=== PATIENT | male | born 1960 | race Caucasian/White ===

== ENCOUNTER 2019-07-08 05:05 | Emergency (ER) | payer BC ==
[2019-07-08] MEDS ORDERED: Lidocaine 2% with EPINEPHrine 1:200,000 20 ML SDV INJECT ONE (05:10)
--- NOTE | 2019-07-08 05:11 | EDM.PDOC ---
ED HPI GENERAL MEDICAL PROBLEM - General Chief Complaint: ENT Problem Stated Complaint: AMBULANCE Time Seen by Provider: 07/08/19 05:11 Source of Information: Reports: Patient History Limitations: Reports: No Limitations - History of Present Illness INITIAL COMMENTS - FREE TEXT/NARRATIVE: nose bleed past 3 hours. Back Pain Score (Numeric/FACES): 4 - Related Data Allergies Allergy/AdvReac Type Severity Reaction Status Date / Time duck egg Allergy Cannot Uncoded 07/08/19 05:17 Remember Home Meds: Home Meds DULoxetine HCl [Duloxetine HCl] 1 cap PO DAILY 07/08/19 [History] HYDROcodone/Ibuprofen [Hydrocodone-Ibuprofen 7.5-200] 0.5 tab PO Q8H 07/08/19 [ History] LORazepam [Lorazepam] 1 tab PO BID PRN 07/08/19 [History] Propranolol HCl [Propranolol] 10 mg PO DAILY 07/08/19 [History] ED ROS ENT - Review of Systems Review Of Systems: Comprehensive ROS is negative, except as noted in HPI. ED EXAM, ENT - Physical Exam Exam: See Below Exam Limited By: No Limitations General Appearance: Alert, WD/WN, Mild Distress, Other (discomfort) Ears: Hearing Grossly Normal Nose: Active Bleeding, Other (right hasslebach) Mouth/Throat: Normal Inspection Head: Atraumatic Neck: Non-Tender, Full Range of Motion Respiratory/Chest: No Respiratory Distress Cardiovascular: Regular Rate, Rhythm GI/Abdominal: Soft, Non-Tender Neurological: Alert, Oriented, Normal Cognition, Normal Gait, No Motor/Sensory Deficits Psychiatric: Flat Affect Skin: Warm, Dry, Normal Color Lymphatic: No Adenopathy ED ENT PROCEDURES - Epistaxis Procedure Indication: Epistaxis Recent anticoagulants/antiplatlets: No Uncontrolled HTN: No Recent septal/nasal surgery: No Site of bleeding: Right Nare Clearing of clots: Suction Topical Meds: Other (lido w/2% epi cotton ball) Ice pack to area: No Anterior Packing: Inflatable Nasal Tampon Complications: No Course - Vital Signs Last Recorded V/S: Last Vital Signs Temp 36.3 C 07/08/19 05:06 Pulse 93 07/08/19 05:06 Resp 19 07/08/19 05:06 BP 168/95 H 07/08/19 05:06 Pulse Ox 98 07/08/19 05:06 - Orders/Labs/Meds Labs: Laboratory Tests 07/08/19 07/08/19 07/08/19 Range/Units 05:44 05:44 05:44 WBC 9.9 (5.0-10.0) 10^3/uL RBC 4.17 L (4.6-6.2) 10^6/uL Hgb 12.7 L (14.0-18.0) g/dL Hct 37.3 L (40.0-54.0) % MCV 89.4 (80-100) fL MCH 30.5 (27.0-34.0) pg MCHC 34.0 (33.0-35.0) g/dL Plt Count 214 (150-450) 10^3/uL Neut % (Auto) 66.7 (42.2-75.2) % Lymph % (Auto) 22.3 (20.5-50.1) % Gulf % (Auto) 8.1 H (2-8) % Eos % (Auto) 2.8 (1.0-3.0) % Baso % (Auto) 0.1 (0.0-1.0) % PT 9.3 (9.0-12.0) SEC INR 0.9 (0.9-1.2) APTT 24.0 (22.0-34.0) SEC Sodium 137 (135-145) mmol/L Potassium 3.9 (3.6-5.0) mmol/L Chloride 103 (101-111) mmol/L Carbon Dioxide 25.0 (21.0-31.0) mmol/L Anion Gap 12.9 BUN 22 H (7-18) mg/dL Creatinine 0.7 (0.6-1.3) mg/dL Est Cr Clr Drug Dosing 102.79 mL/min Estimated GFR (MDRD) > 60 BUN/Creatinine Ratio 31.42 Glucose 104 (74-105) mg/dL Calcium 9.4 (8.4-10.2) mg/dl Total Bilirubin 0.8 (0.2-1.0) mg/dL AST 22 (10-42) IU/L ALT 16 (10-60) IU/L Alkaline Phosphatase 42 (42-121) IU/L Total Protein 7.3 (6.7-8.2) g/dl Albumin 4.3 (3.2-5.5) g/dl Globulin 3.0 Albumin/Globulin Ratio 1.43 Meds: Medications Discontinued Medications Generic Name Dose Route Start Last Admin Trade Name Christy PRN Reason Stop Dose Admin Lidocaine/Epinephrine 20 ml 07/08/19 05:10 07/08/19 05:20 Xylocaine-Mpf 2%-Epi 1:200,000 INJECT 07/08/19 05:11 20 ml ONETIME ONE Administration Lorazepam 0.5 mg 07/08/19 05:40 07/08/19 06:10 Ativan IVPUSH 07/08/19 05:41 Not Given ONETIME ONE Lorazepam 2 mg 07/08/19 05:58 07/08/19 06:09 Ativan IVPUSH 07/08/19 05:59 1 mg ONETIME ONE Administration - Re-Assessments/Exams Free Text/Narrative Re-Assessment/Exam: 07/08/19 05:42 re-exam; no bleeding 10minutes post. 07/08/19 06:44 re-exam; no bleeding past hour. Departure - Departure Time of Disposition: 06:55 Disposition: Home, Self-Care 01 Condition: Good Clinical Impression: Epistaxis - Discharge Information Instructions: Nosebleed, [id number] Referrals: PCP,None [Ordering Only Provider] - Forms: ED Department Discharge Additional Instructions: 1) no bending lifting stooping over next 4 days 2) avoid aspirin and motrin 3) return Thursday for rhino removal Sepsis Event Note - Focused Exam Date Exam was Performed: 07/09/19 Time Exam was Performed: 06:20
[2019-07-08] MEDS ORDERED: LORazepam 2 MG/ML SDV IVPUSH ONE ×2 (05:40→05:58)
[2019-07-08 06:13] LABS: ANION GAP 12.9; CHLORIDE,CL 103 mmol/L (101-111); SODIUM,NA 137 mmol/L (135-145)
== END 2019-07-08 06:58 | disposition home or self-care (01) ==
LOC: DL.ED 05:05
DX: R04.0 Epistaxis (principal); Z91.012 Allergy to eggs
CPT/HCPCS: 30901; 36415; 80053; 85025; 85610; 85730; 96374; 99284; J2060

== ENCOUNTER 2023-02-26 07:15 | Day surgery (SDC) | payer BC ==
[~2023-02-26 07:15] MED LIST: Dextrose 5%-0.45% NaCl 1,000 ML IV SCH
[2023-02-26] MEDS ORDERED: fentaNYL 100 MCG/2 ML SDV ONE (08:13)
[2023-02-26] MEDS ORDERED: Midazolam 1 MG/ML 2 ML SDV ONE (08:13)
[2023-02-26] MEDS ORDERED: fentaNYL 100 MCG/2 ML SDV IV ONE ×7 (08:39→09:57)
[2023-02-26] MEDS ORDERED: Midazolam 1 MG/ML 2 ML SDV IV ONE ×7 (08:40→09:57)
== END 2023-02-26 10:32 | disposition home or self-care (01) ==
LOC: DL.ENDO 07:15
PROVIDERS: ATTEND Internal Medicine Gastroenterology
DX: Z12.11 Encounter for screening for malignant neoplasm of colon (principal); I10 Essential (primary) hypertension; E78.5 Hyperlipidemia, unspecified; R25.1 Tremor, unspecified; F12.90 Cannabis use, unspecified, uncomplicated; G89.4 Chronic pain syndrome; F17.210 Nicotine dependence, cigarettes, uncomplicated; F11.20 Opioid dependence, uncomplicated; Z98.890 Other specified postprocedural states
CPT/HCPCS: 45378; J2250; J3010; J7042